=== PATIENT | male | born 1935 | race Caucasian/White ===

== ENCOUNTER → 2018-06-24 09:02 | Outpatient (CLI) | payer MEDICARE, OTHER ==
[2012-04-25 10:38] VITALS: BMI 28.1
== END | disposition home or self-care (01) ==
LOC: D.HCCARDIO 09:02
PROVIDERS: ATTEND Internal Medicine Cardiovascular Disease
DX: I34.0 Nonrheumatic mitral (valve) insufficiency (principal)

== ENCOUNTER 2018-08-20 19:23 | Emergency (ER) | payer MEDICARE, OTHER ==
[~2018-08-20] VITALS: Ht 177.8 cm; Wt 83.2 kg
[2018-08-20 19:34] VITALS: Ht 177.8 cm; Wt 83.2 kg
[2018-08-20] MEDS ORDERED: LIPITOR20 MG PO (19:36)
[2018-08-20] MEDS ORDERED: KRILL OIL 1,001 EAC1 PO (19:37)
[2018-08-20] MEDS ORDERED: MAGNESIUM OXID250 MG PO (19:37)
[2018-08-20] MEDS ORDERED: NIACIN100 MG PO (19:37)
[2018-08-20 20:16] LABS: BASOPHILS 0.1 % (0-2); EOSINOPHILS 1.4 % (0-7); HEMATOCRIT 40.7 % (42.0-54.0); IMMATURE GRANULOCYTES 0.1 % (0-5); LYMPHOCYTES 23.1 % (15-50); MCH 31.4 pg (26.0-34.0); MCHC 34.4 g/dL (31.0-37.0); MCV 91.3 fL (80.0-100.0); MEAN PLATELET VOLUME 9.5 fL (7.4-10.4); MONOCYTES 12.2 % (2-11); NEUTROPHILS 63.1 % (40-80); PLATELET COUNT 165 10x3/uL (130-400); RBC 4.46 10x6/uL (4.20-6.10); RDW 13.2 % (11.5-14.5)
[2018-08-20 20:33] LABS: ALBUMIN 3.9 g/dL (3.4-5.0); ALKALINE PHOSPHATASE 68 U/L (46-116); ALT (SGPT) 32 U/L (10-68); CALC OSMOLALITY 289 mosm/kg (275-300); CARBON DIOXIDE 25.6 mmol/L (21.0-32.0); CHLORIDE - SERUM 106 mmol/L (98-107); CREATININE - SERUM 1.2 mg/dL (0.6-1.3); GLUCOSE 113 mg/dL (74-106); PROTEIN - SERUM 7.4 g/dL (6.4-8.2); SODIUM 142 mmol/L (136-145); UREA NITROGEN 28 mg/dL (7-18); eGFR NON AFRICAN AMERICAN 61 mL/min (90-120)
[2018-08-20 20:38] LABS: AMYLASE - SERUM 44 U/L (25-115); LIPASE 67 U/L (73-393)
[2018-08-20 20:51] LABS: TROPONIN-I < 0.017 ng/mL (0.000-0.060)
[2018-08-20 22:35] LABS: APPEARANCE CLEAR (CLEAR); BILIRUBIN NEGATIVE (NEGATIVE); COLOR YELLOW (YELLOW); GLUCOSE NEGATIVE (NEGATIVE); KETONE NEGATIVE (NEGATIVE); NITRITE NEGATIVE (NEGATIVE); PROTEIN NEGATIVE (NEGATIVE); SPECIFIC GRAVITY 1.015 (1.005-1.020); UROBILINOGEN NORMAL (NORMAL)
[2018-08-20] MEDS ORDERED: MILK OF MAGNESI30 ML PO (22:51)
[2018-08-20] MEDS ORDERED: MIRALAX17 GM PO (22:51)
[2018-08-20 23:07] VITALS: BP 135/66
== END 2018-08-20 23:09 | disposition home or self-care (01) ==
LOC: D.ER 19:23
PROVIDERS: Family Medicine
DX: K59.00 Constipation, unspecified (principal); F03.90 Unspecified dementia, unspecified severity, without behavioral disturbance, psychotic disturbance, mood disturbance, and anxiety

== ENCOUNTER 2018-12-14 14:05 | Inpatient (IN) | payer MEDICARE, OTHER ==
[~2018-12-14] VITALS: Ht 177.8 cm; Wt 80.9 kg
[~2018-12-14 14:05] MED LIST: KRILL OIL 1,001 EAC1 PO; LIPITOR20 MG PO; MAGNESIUM OXID250 MG PO; MILK OF MAGNESI30 ML PO; MIRALAX17 GM PO; NIACIN100 MG PO
[2018-12-14 14:32] LABS: BASOPHILS 0.3 % (0-2); EOSINOPHILS 1.2 % (0-7); HEMATOCRIT 41.2 % (42.0-54.0); HEMOGLOBIN 14.6 g/dL (13.5-17.5); IMMATURE GRANULOCYTES 0.1 % (0-5); LYMPHOCYTES 28.4 % (15-50); MCH 31.3 pg (26.0-34.0); MCHC 35.4 g/dL (31.0-37.0); MCV 88.4 fL (80.0-100.0); MEAN PLATELET VOLUME 9.2 fL (7.4-10.4); MONOCYTES 8.4 % (2-11); NEUTROPHILS 61.6 % (40-80); PLATELET COUNT 161 10x3/uL (130-400); RBC 4.66 10x6/uL (4.20-6.10); WBC 6.9 10x3/uL (4.8-10.8)
[2018-12-14 14:42] LABS: APTT 26.8 SECONDS (22.8-39.4); INR 1.05 (0.85-1.17); PROTIME 13.2 SECONDS (11.6-15.0)
[2018-12-14 14:46] LABS: ALKALINE PHOSPHATASE 77 U/L (46-116); ALT (SGPT) 28 U/L (10-68); BILIRUBIN - TOTAL 0.44 mg/dL (0.2-1.3); CALC OSMOLALITY 282 mosm/kg (275-300); CALCIUM 9.1 mg/dL (8.5-10.1); CHLORIDE - SERUM 105 mmol/L (98-107); GLUCOSE 119 mg/dL (74-106); POTASSIUM - SERUM 4.1 mmol/L (3.5-5.1); PROTEIN - SERUM 7.3 g/dL (6.4-8.2); SODIUM 140 mmol/L (136-145); UREA NITROGEN 20 mg/dL (7-18); eGFR NON AFRICAN AMERICAN 75 mL/min (90-120)
[2018-12-14 14:57] LABS: CKMB 1.4 U/L (0.0-3.6); CREATINE KINASE 99 UL (21-232); THYROID STIMULATING HORMONE 2.63 uIU/mL (0.36-3.74)
[2018-12-14 14:58] LABS: TROPONIN-I < 0.017 ng/mL (0.000-0.060)
[2018-12-14 16:42] LABS: APPEARANCE CLEAR (CLEAR); BILIRUBIN NEGATIVE (NEGATIVE); COLOR STRAW (YELLOW); GLUCOSE NEGATIVE (NEGATIVE); KETONE SMALL mg/dL (NEGATIVE); NITRITE NEGATIVE (NEGATIVE); PROTEIN NEGATIVE (NEGATIVE); SPECIFIC GRAVITY 1.005 (1.005-1.020); UROBILINOGEN NORMAL (NORMAL)
[2018-12-14 21:11] LABS: CKMB 1.1 U/L (0.0-3.6); CREATINE KINASE 98 UL (21-232); TROPONIN-I < 0.017 ng/mL (0.000-0.060)
[2018-12-15] VITALS (7 sets, daily range): BP systolic 120–156; BP diastolic 16–82; BMI 25.4; BMI 25.3
[2018-12-15 03:05] LABS: BASOPHILS 0.2 % (0-2); EOSINOPHILS 1.3 % (0-7); HEMATOCRIT 37.4 % (42.0-54.0); HEMOGLOBIN 13.2 g/dL (13.5-17.5); IMMATURE GRANULOCYTES 0.2 % (0-5); LYMPHOCYTES 29.7 % (15-50); MCH 31.2 pg (26.0-34.0); MCHC 35.3 g/dL (31.0-37.0); MCV 88.4 fL (80.0-100.0); MEAN PLATELET VOLUME 9.1 fL (7.4-10.4); MONOCYTES 10.8 % (2-11); NEUTROPHILS 57.8 % (40-80); PLATELET COUNT 141 10x3/uL (130-400); RBC 4.23 10x6/uL (4.20-6.10); RDW 12.9 % (11.5-14.5); WBC 5.4 10x3/uL (4.8-10.8)
[2018-12-15 03:38] LABS: ALBUMIN 3.3 g/dL (3.4-5.0); ALKALINE PHOSPHATASE 65 U/L (46-116); ALT (SGPT) 24 U/L (10-68); BILIRUBIN - TOTAL 0.47 mg/dL (0.2-1.3); CALC OSMOLALITY 287 mosm/kg (275-300); CALCIUM 8.3 mg/dL (8.5-10.1); CARBON DIOXIDE 28.2 mmol/L (21.0-32.0); CHLORIDE - SERUM 109 mmol/L (98-107); CKMB 1.5 U/L (0.0-3.6); CREATINE KINASE 90 UL (21-232); CREATININE - SERUM 1.1 mg/dL (0.6-1.3); GLUCOSE 101 mg/dL (74-106); MAGNESIUM - SERUM 1.9 mg/dL (1.8-2.4); PHOSPHOROUS 3.6 mg/dL (2.5-4.9); POTASSIUM - SERUM 3.8 mmol/L (3.5-5.1); PRO BNP 542 pg/mL (0-450); PROTEIN - SERUM 6.4 g/dL (6.4-8.2); SODIUM 144 mmol/L (136-145); TROPONIN-I < 0.017 ng/mL (0.000-0.060); UREA NITROGEN 16 mg/dL (7-18); eGFR NON AFRICAN AMERICAN 67 mL/min (90-120)
[2018-12-15 08:42] LABS: CKMB 1.2 U/L (0.0-3.6); CREATINE KINASE 104 UL (21-232); TROPONIN-I < 0.017 ng/mL (0.000-0.060)
--- NOTE | 2018-12-15 09:53 | NUR ---
Rehab Note- Acute Inpatient Rehab prescreen order received. The patient is a new admit & continues to have an acute work up & has a pending PT Eval- will await to see the patient's functional mobility. Will continue to follow at this time. THank you for this referral! Susana Mcdaniel RN Clinical Liaison, [facility] Rehab
--- NOTE | 2018-12-15 14:58 | NUR ---
REHAB PRESCREENING Mr. Walker was able to ambulate 8 feet with PT evaluation. He will be a good candidate for ARU if agreeable. Rehab will accept him when his work up is complete and his physicians feel he is appropriate for discharge. Thank you for this referral! Laurie Kelley, RETAIL FIELD REPRESENTATIVE Rehab PD
--- NOTE | 2018-12-15 17:02 | MORECARE ---
CASE MANAGEMENT DISCHARGE SUMMARY PATIENT: FORTUNATO CARSON UNIT: [id number] ADM DATE: 12/15/18 AGE: 83 : 33 SEX: M ROOM/BED: D.5178 AUTHOR: KATHRYNDOC PHYSICIAN: REFERRING PHYSICIAN: DANE HILL MD DATE OF SERVICE: 12/15/18 Discharge Plan Patient Name: FORTUNATO CARSON [facility] [facility] 1935 Planned Disposition: Inpatient Rehab Anticipated Discharge Date: 12/16/18 Discharge Date: Expected LOS: 1 Initial Reviewer: [id number] Initial Review Date: 12/15/2018 Generated: 12/15/18 6:02 pm Comments DCP- Discharge Planning Updated by [email or web address]: Danny Darby on 12/15/18 4:[address] Patient Name: FORTUNATO CARSON Admission Status: ER Accout number: [id number] Admission Date: 12-15-2018 : 1935 Admission Diagnosis: Attending: ANTONELLA HILL Current LOS: 1 Anticipated DC Date: 12-16-2018 Planned Disposition: Inpatient Rehab Primary Insurance: MEDICARE A & B PLANNED EXTERNAL PROVIDER: INPATIENT REHAB Discharge Planning Comments: CM RECEIVED ORDER FOR ADAPTIVE EQUIPMENT AND INPATIENT REHAB PRESCREEN. CM MET WITH PT IN ROOM TO DISCUSS DISCHARGE PLANNING AND NEEDS. FORTUNATO CARSON provided verbal consent to discuss current and ongoing needs with/in the presence of: SPOUSE, SWATHI. PT REPORTS LIVING AT HOME INDEPENDENTLY WITH HIS . PT HAS NO MEDICAL EQUIPMENT AND NO OUTSIDE SERVICES ASSISTING IN THE HOME. CM DISCUSSED AVAILABILITY OF HOME HEALTH, REHAB SERVICES AND MEDICAL EQUIPMENT. PT DENIES NEED OF MEDICAL EQUIPMENT REPORTING HIS HAS A ROLLATOR WALKER HE CAN USE IF NEEDED SHE DOES NOT REQUIRE IT NOW. PT AND SPOUSE WOULD LIKE TO CONSIDER REHAB AT [place] IF PT DOES NOT NEED TRANSFERRED TO [facility] FOR NEUOLOGY. PT STATES HE IS WAITING FOR THE DOCTOR TO TELL HIM IF HE NEEDS A NEUROLOGIST. PT REPORTS HIS FAMILY WILL PICK HIM UP FOR DISCHARGE HOME CM WAITING THERAPY EVALUATIONS AND INPATIENT REHAB PRESCREENING DETERMINATION FROM INPATIENT REHAB. Intensive Care Unit Nurse: Danny Darby DCPIA - Discharge Planning Initial Assessment Updated by [id number]: Danny Darby on 12/15/18 4:58 pm * Is the patient Alert and Oriented? Yes * How many steps to enter\exit or inside your home? * PCP DR. WAY * Pharmacy [facility] OR [place] [facility]IL ORDER * Preadmission Environment Home with Family * ADLs Independent * Equipment None * Other Equipment PT REPORTS HAVING HIS 'S ROLLATOR WALKER TO USE IF NECESSARY SHE DOES NOT USE IT. NO MEDICAL EQUIPMENT PROVIDER PREFERENCE * List name and contact numbers for known caregivers / representatives who currently or will assist patient after discharge: SWATHI CARSON, SPOUSE, * Verbal permission to speak to the caregivers and representatives has been obtained from the patient. Yes * Community resources currently utilized None * Please name any agencies selected above. NONE * Additional services required to return to the preadmission environment? Yes * Can the patient safely return to the preadmission environment? Yes * Has this patient been hospitalized within the prior 30 days at any hospital? No Coverage Notice Reviewer: [id number] Yanira Eller [place] Notice Issued Date-Time: 12/15/2018 9:40 Notice Type: Medicare Outpatient Observation Notice Notice Delivered To: Patient Relationship to Patient: Self Director Of Placement Name: Delivery Method: HAND - Hand Delivered Isabelle Days: Prior Verbal Notification: Recipient Understood Notice: Yes Recipient Signature: Yes Med Rec Note Co-signed by Attending: Coverage Notice Comment: Patient Name: FORTUNATO CARSON Page [id number] at 1702 All edits/amendments must be made on the electronic document DICTATION DATE: 12/15/181701 JAVA PROGRAMMER ANALYST: FRANCESCA 12/15/181701 RPT#: [id number] DC DATE: STATUS: ADM [address] [place] [address] END OF REPORT
--- NOTE | 2018-12-15 19:31 | NUR ---
RESUMING PATIENT CARE. PATIENT IS ALERT AND ORIENTED, RESTING COMFORTAWBLY IN BED. RESPIRATIONS ARE EVEN AND UNLABORED. NO S/S OF DISTRESS. NO C/O PAIN. CALL LIGHT WITHIN REACH. WILL CPOC.
[2018-12-16 00:30] VITALS: BP 145/70
[2018-12-16 04:30] VITALS: BP 152/76
[2018-12-16 06:32] LABS: CALC OSMOLALITY 282 mosm/kg (275-300); CALCIUM 8.7 mg/dL (8.5-10.1); CARBON DIOXIDE 26.8 mmol/L (21.0-32.0); CHLORIDE - SERUM 106 mmol/L (98-107); GLUCOSE 105 mg/dL (74-106); MAGNESIUM - SERUM 1.8 mg/dL (1.8-2.4); PHOSPHOROUS 3.6 mg/dL (2.5-4.9); POTASSIUM - SERUM 3.8 mmol/L (3.5-5.1); SODIUM 141 mmol/L (136-145); UREA NITROGEN 18 mg/dL (7-18); eGFR NON AFRICAN AMERICAN 75 mL/min (90-120)
[2018-12-16 07:29] LABS: BASOPHILS 0.4 % (0-2); EOSINOPHILS 1.8 % (0-7); HEMATOCRIT 37.2 % (42.0-54.0); HEMOGLOBIN 12.9 g/dL (13.5-17.5); LYMPHOCYTES 29.1 % (15-50); MCH 30.9 pg (26.0-34.0); MCHC 34.7 g/dL (31.0-37.0); MCV 89.2 fL (80.0-100.0); MEAN PLATELET VOLUME 9.7 fL (7.4-10.4); MONOCYTES 14.2 % (2-11); NEUTROPHILS 54.5 % (40-80); PLATELET COUNT 154 10x3/uL (130-400); RBC 4.17 10x6/uL (4.20-6.10); RDW 13.1 % (11.5-14.5); WBC 5.5 10x3/uL (4.8-10.8)
[2018-12-16 08:35] VITALS: BP 123/59
[2018-12-16 12:45] VITALS: BP 114/69
--- NOTE | 2018-12-16 13:39 | NUR ---
Rehab Note- the patient has a pending Cardiovascular Surgeon consult due to carotid stenosis, will need to be done prior to admission to acute inpatient rehab. Will continue to follow at this time. Thank you for this referral! Susana Mcdaniel RN Clinical Liaison, [facility] Rehab
[2018-12-16 14:07] VITALS: Ht 177.8 cm; Wt 80.9 kg
--- NOTE | 2018-12-16 14:40 | NUR ---
OT NOTE: PT COMPLETED BED MOB TASKS WITH MIN/MOD A. PT COMPLETED GROOMING TASKS WITH SET UP. THANK YOU, JENNIFER WEN
--- NOTE | 2018-12-16 14:44 | NUR ---
IV STARTED TO LFA WITH 20 GAUGE CATH X 1 STICK AND FLUSHED WITH NS. LINE IS PATENT.
--- NOTE | 2018-12-16 15:15 | NUR ---
LEAVING FOR X-RAY BY W/C FOR CTA CAROTID. WILL CONT. PLAN OF CARE.
[2018-12-16 16:45] VITALS: BP 94/52
--- NOTE | 2018-12-16 19:40 | NUR ---
PATIENT IS RESTING IN BED. BREATHING UNLABORED AND EVEN. DENIES ANY PAIN OR CONCERNS AT THIS TIME. BED IN THE LOWEST POSITON AND CALL LIGHT IN REACH. WILL CONTINUE TO FOLLOW POC AND CTM.
[2018-12-17 01:14] VITALS: BP 121/65
[2018-12-17 05:07] VITALS: BP 105/54
[2018-12-17 05:57] LABS: BASOPHILS 0.1 % (0-2); EOSINOPHILS 1.3 % (0-7); HEMATOCRIT 35.4 % (42.0-54.0); HEMOGLOBIN 12.4 g/dL (13.5-17.5); IMMATURE GRANULOCYTES 0.1 % (0-5); MCH 31.3 pg (26.0-34.0); MCV 89.4 fL (80.0-100.0); MEAN PLATELET VOLUME 9.6 fL (7.4-10.4); MONOCYTES 10.9 % (2-11); NEUTROPHILS 68.6 % (40-80); PLATELET COUNT 145 10x3/uL (130-400); RBC 3.96 10x6/uL (4.20-6.10); RDW 13.1 % (11.5-14.5)
[2018-12-17 06:04] LABS: WBC 7.1 10x3/uL (4.8-10.8)
[2018-12-17 06:14] LABS: ANION GAP 9.9 mmol/L (8-16); CALCIUM 8.7 mg/dL (8.5-10.1); CARBON DIOXIDE 29.6 mmol/L (21.0-32.0); CREATININE - SERUM 1.1 mg/dL (0.6-1.3); MAGNESIUM - SERUM 1.8 mg/dL (1.8-2.4); PHOSPHOROUS 3.6 mg/dL (2.5-4.9)
[2018-12-17 06:15] LABS: POTASSIUM - SERUM 4.5 mmol/L (3.5-5.1)
[2018-12-17 08:47] VITALS: BP 104/53
--- NOTE | 2018-12-17 09:51 | NUR ---
TELEMETRY SR. UP AMBULATING HALLWAY W/O C/O DIZZINESS. GAIT STEADY.
--- NOTE | 2018-12-17 10:46 | NUR ---
UP AMBULATING HALLWAY WITH PT. WILL CONT. TO MONITOR.
[2018-12-17 12:30] VITALS: BP 108/54
--- NOTE | 2018-12-17 12:38 | NUR ---
Nutrition Follow-up: Good appetite/PO intake. Likes Ensure. Diet: Cardiac PO intake: 75-100% Wt: 178# Last BM: 12/17 Labs reviewed Meds reviewed Continue cardiac diet as tolerated. +Ensure with meals. RD following.
[2018-12-17] MEDS ORDERED: NITRO-DUR0.6 MG TRANSDERM (12:40)
[2018-12-17] MEDS ORDERED: ASPIRIN EC81 M1 PO (12:40)
--- NOTE | 2018-12-17 15:43 | NUR ---
NOTIFIED SHARON MANN IN REHAB THAT PATIENT IS NO LONGER GOING TO REHAB AND IS GOING HOME WITH HOME HEALTH. STATED SHE WOULD ADVISE [facility]/A[facility] I COULD NOT REACH HER BY PHONE
--- NOTE | 2018-12-17 16:04 | MORECARE ---
CASE MANAGEMENT DISCHARGE SUMMARY PATIENT: FORTUNATO CARSON UNIT: [id number] ADM DATE: 12/15/18 AGE: 83 : 33 SEX: M ROOM/BED: D.1188 AUTHOR: KATHRYNDOC PHYSICIAN: REFERRING PHYSICIAN: DANE HILL MD DATE OF SERVICE: 12/17/18 Discharge Plan Patient Name: FORTUNATO CARSON [facility] [facility] 1935 Planned Disposition: Inpatient Rehab Anticipated Discharge Date: 12/16/18 Discharge Date: Expected LOS: 1 Initial Reviewer: [id number] Initial Review Date: 12/15/2018 Generated: 12/17/18 5:04 pm DCP- Discharge Planning Updated by [email or web address]: Danny Darby on 12/15/18 4:[address] Patient Name: FORTUNATO CARSON Admission Status: ER Accout number: [id number] Admission Date: 12-15-2018 : 1935 Admission Diagnosis: Attending: ANTONELLA HILL Current LOS: 1 Anticipated DC Date: 12-16-2018 Planned Disposition: Inpatient Rehab Primary Insurance: MEDICARE A & B PLANNED EXTERNAL PROVIDER: [facility] INPATIENT REHAB Discharge Planning Comments: CM RECEIVED ORDER FOR ADAPTIVE EQUIPMENT AND INPATIENT REHAB PRESCREEN. CM MET WITH PT IN ROOM TO DISCUSS DISCHARGE PLANNING AND NEEDS. FORTUNATO CARSON provided verbal consent to discuss current and ongoing needs with/in the presence of: SPOUSE, SWATHI. PT REPORTS LIVING AT HOME INDEPENDENTLY WITH HIS . PT HAS NO MEDICAL EQUIPMENT AND NO OUTSIDE SERVICES ASSISTING IN THE HOME. CM DISCUSSED AVAILABILITY OF HOME HEALTH, REHAB SERVICES AND MEDICAL EQUIPMENT. PT DENIES NEED OF MEDICAL EQUIPMENT REPORTING HIS HAS A ROLLATOR WALKER HE CAN USE IF NEEDED SHE DOES NOT REQUIRE IT NOW. PT AND SPOUSE WOULD LIKE TO CONSIDER REHAB AT [place] IF PT DOES NOT NEED TRANSFERRED TO [facility] FOR NEUOLOGY. PT STATES HE IS WAITING FOR THE DOCTOR TO TELL HIM IF HE NEEDS A NEUROLOGIST. PT REPORTS HIS FAMILY WILL PICK HIM UP FOR DISCHARGE HOME CM WAITING THERAPY EVALUATIONS AND INPATIENT REHAB PRESCREENING DETERMINATION FROM [facility] INPATIENT REHAB. Board Setter: Danny Darby DCPIA - Discharge Planning Initial Assessment Updated by [id number]: Danny Darby on 12/15/18 4:58 pm * Is the patient Alert and Oriented? Yes * How many steps to enter\exit or inside your home? * PCP DR. WAY * Pharmacy [facility] [place] [facility] * Preadmission Environment Home with Family * ADLs Independent * Equipment None * Other Equipment PT REPORTS HAVING HIS 'S ROLLATOR WALKER TO USE IF NECESSARY SHE DOES NOT USE IT. NO MEDICAL EQUIPMENT PROVIDER PREFERENCE * List name and contact numbers for known caregivers / representatives who currently or will assist patient after discharge: SWATHI CARSON, SPOUSE, * Verbal permission to speak to the caregivers and representatives has been obtained from the patient. Yes * Community resources currently utilized None * Please name any agencies selected above. NONE * Additional services required to return to the preadmission environment? Yes * Can the patient safely return to the preadmission environment? Yes * Has this patient been hospitalized within the prior 30 days at any hospital? No External Providers [facility] Provider[facility] Next Contact Date: 12/17/2018 Service Request Date: Service Type: Resolution: Reviewer: Comments: Coverage Notice Reviewer: [id number] Yanira Eller [place] Notice Issued Date-Time: 12/15/2018 9:40 Notice Type: Medicare Outpatient Observation Notice Notice Delivered To: Patient Relationship to Patient: Self Bookmobile Librarian Name: Delivery Method: HAND - Hand Delivered Isabelle Days: Prior Verbal Notification: Recipient Understood Notice: Yes Recipient Signature: Yes Med Rec Note Co-signed by Attending: Coverage Notice Comment: Last DP export: 12/15/18 4:02 p Patient Name: FORTUNATO CARSON Page [id number] at 1604 All edits/amendments must be made on the electronic document DICTATION DATE: 12/17/18 160 CREDIT REFERENCE CLERK: FRANCESCA 12/17/18 1604 RPT#: [id number] DC DATE: STATUS: ADM IN [facility] [address] [place] [address] END OF REPORT
--- NOTE | 2018-12-17 16:12 | MORECARE ---
CASE MANAGEMENT DISCHARGE SUMMARY PATIENT: FORTUNATO CARSON UNIT: [id number] ADM DATE: 12/15/18 AGE: 83 : 33 SEX: M ROOM/BED: D.8167 AUTHOR: KATHRYN,DOC PHYSICIAN: REFERRING PHYSICIAN: DANE HILL MD DATE OF SERVICE: 12/17/18 Discharge Plan Patient Name: FORTUNATO CARSON [facility] [facility] 1935 Planned Disposition: Home with Home Health Anticipated Discharge Date: 12/17/18 Discharge Date: Expected LOS: 2 Initial Reviewer: [id number] Initial Review Date: 12/15/2018 Generated: 12/17/18 5:12 pm DCP- Discharge Planning Updated by [email or web address]: Danny Darby on 12/15/18 4:[address] Patient Name: FORTUNATO CARSON Admission Status: ER Accout number: [id number] Admission Date: 12-15-2018 : 1935 Admission Diagnosis: Attending: ANTONELLA HILL Current LOS: 1 Anticipated DC Date: 12-16-2018 Planned Disposition: Inpatient Rehab Primary Insurance: MEDICARE A & B PLANNED EXTERNAL PROVIDER: [facility] INPATIENT REHAB Discharge Planning Comments: CM RECEIVED ORDER FOR ADAPTIVE EQUIPMENT AND INPATIENT REHAB PRESCREEN. CM MET WITH PT IN ROOM TO DISCUSS DISCHARGE PLANNING AND NEEDS. FORTUNATO CARSON provided verbal consent to discuss current and ongoing needs with/in the presence of: SPOUSE, SWATHI. PT REPORTS LIVING AT HOME INDEPENDENTLY WITH HIS . PT HAS NO MEDICAL EQUIPMENT AND NO OUTSIDE SERVICES ASSISTING IN THE HOME. CM DISCUSSED AVAILABILITY OF HOME HEALTH, REHAB SERVICES AND MEDICAL EQUIPMENT. PT DENIES NEED OF MEDICAL EQUIPMENT REPORTING HIS HAS A ROLLATOR WALKER HE CAN USE IF NEEDED SHE DOES NOT REQUIRE IT NOW. PT AND SPOUSE WOULD LIKE TO CONSIDER REHAB AT [place] IF PT DOES NOT NEED TRANSFERRED TO [facility] FOR NEUOLOGY. PT STATES HE IS WAITING FOR THE DOCTOR TO TELL HIM IF HE NEEDS A NEUROLOGIST. PT REPORTS HIS FAMILY WILL PICK HIM UP FOR DISCHARGE HOME CM WAITING THERAPY EVALUATIONS AND INPATIENT REHAB PRESCREENING DETERMINATION FROM [facility] INPATIENT REHAB. Net Programmer Analyst: Danny Darby DCPIA - Discharge Planning Initial Assessment Updated by [email or web address]: Danny Darby on 12/15/18 4:58 pm * Is the patient Alert and Oriented? Yes * How many steps to enter\exit or inside your home? * PCP DR. WAY * Pharmacy [facility] OR [place] [facility] ORDER * Preadmission Environment Home with Family * ADLs Independent * Equipment None * Other Equipment PT REPORTS HAVING HIS 'S ROLLATOR WALKER TO USE IF NECESSARY SHE DOES NOT USE IT. NO MEDICAL EQUIPMENT PROVIDER PREFERENCE * List name and contact numbers for known caregivers / representatives who currently or will assist patient after discharge: SWATHI CARSON, SPOUSE, * Verbal permission to speak to the caregivers and representatives has been obtained from the patient. Yes * Community resources currently utilized None * Please name any agencies selected above. NONE * Additional services required to return to the preadmission environment? Yes * Can the patient safely return to the preadmission environment? Yes * Has this patient been hospitalized within the prior 30 days at any hospital? No Coverage Notice Reviewer: [id number] Yanira Ambrose Notice Issued Date-Time: 12/15/2018 9:40 Notice Type: Medicare Outpatient Observation Notice Notice Delivered To: Patient Relationship to Patient: Self Multimedia Author Name: Delivery Method: HAND - Hand Delivered Isabelle Days: Prior Verbal Notification: Recipient Understood Notice: Yes Recipient Signature: Yes Med Rec Note Co-signed by Attending: Coverage Notice Comment: Last DP export: 12/17/18 3:04 p Patient Name: FORTUNATO CARSON Page [id number] at 1612 All edits/amendments must be made on the electronic document DICTATION DATE: 12/17/181611 STILE RIPSAW OPERATOR: FRANCESCA 12/17/18 161 RPT#: [id number] DC DATE: STATUS: ADM IN [facility] [address] [place] [address] END OF REPORT
--- NOTE | 2018-12-17 16:22 | MORECARE ---
CASE MANAGEMENT DISCHARGE SUMMARY PATIENT: FORTUNATO CARSON UNIT: [id number] ADM DATE: 12/15/18 AGE: 83 : 33 SEX: M ROOM/BED: D.7256 AUTHOR: KATHRYN,DOC PHYSICIAN: REFERRING PHYSICIAN: DANE HILL MD DATE OF SERVICE: 12/17/18 Discharge Plan Patient Name: FORTUNATO CARSON [facility] [facility] 1935 Planned Disposition: Home with Home Health Anticipated Discharge Date: 12/17/18 Discharge Date: Expected LOS: 2 Initial Reviewer: [email or web address] Initial Review Date: 12/15/2018 Generated: 12/17/18 5:21 pm DCP- Discharge Planning Updated by [email or web address]: Danny Darby on 12/15/18 4:[address] Patient Name: FORTUNATO CARSON Admission Status: ER Accout number: [id number] Admission Date: 12-15-2018 : 1935 Admission Diagnosis: Attending: ANTONELLA HILL Current LOS: 1 Anticipated DC Date: 12-16-2018 Planned Disposition: Inpatient Rehab Primary Insurance: MEDICARE A & B PLANNED EXTERNAL PROVIDER: [facility] INPATIENT REHAB Discharge Planning Comments: CM RECEIVED ORDER FOR ADAPTIVE EQUIPMENT AND INPATIENT REHAB PRESCREEN. CM MET WITH PT IN ROOM TO DISCUSS DISCHARGE PLANNING AND NEEDS. FORTUNATO CARSON provided verbal consent to discuss current and ongoing needs with/in the presence of: SPOUSE, SWATHI. PT REPORTS LIVING AT HOME INDEPENDENTLY WITH HIS . PT HAS NO MEDICAL EQUIPMENT AND NO OUTSIDE SERVICES ASSISTING IN THE HOME. CM DISCUSSED AVAILABILITY OF HOME HEALTH, REHAB SERVICES AND MEDICAL EQUIPMENT. PT DENIES NEED OF MEDICAL EQUIPMENT REPORTING HIS HAS A ROLLATOR WALKER HE CAN USE IF NEEDED SHE DOES NOT REQUIRE IT NOW. PT AND SPOUSE WOULD LIKE TO CONSIDER REHAB AT [place] IF PT DOES NOT NEED TRANSFERRED TO [facility] FOR NEUOLOGY. PT STATES HE IS WAITING FOR THE DOCTOR TO TELL HIM IF HE NEEDS A NEUROLOGIST. PT REPORTS HIS FAMILY WILL PICK HIM UP FOR DISCHARGE HOME CM WAITING THERAPY EVALUATIONS AND INPATIENT REHAB PRESCREENING DETERMINATION FROM [facility] INPATIENT REHAB. Civil Cad Tech: Danny Darby DCPIA - Discharge Planning Initial Assessment Updated by [email or web address]: Danny Darby on 12/15/18 4:58 pm * Is the patient Alert and Oriented? Yes * How many steps to enter\exit or inside your home? * PCP DR. WAY * Pharmacy [facility] OR [place] MAIL ORDER * Preadmission Environment Home with Family * ADLs Independent * Equipment None * Other Equipment PT REPORTS HAVING HIS 'S ROLLATOR WALKER TO USE IF NECESSARY SHE DOES NOT USE IT. NO MEDICAL EQUIPMENT PROVIDER PREFERENCE * List name and contact numbers for known caregivers / representatives who currently or will assist patient after discharge: SWATHI CARSON, SPOUSE, * Verbal permission to speak to the caregivers and representatives has been obtained from the patient. Yes * Community resources currently utilized None * Please name any agencies selected above. NONE * Additional services required to return to the preadmission environment? Yes * Can the patient safely return to the preadmission environment? Yes * Has this patient been hospitalized within the prior 30 days at any hospital? No Coverage Notice Reviewer: [id number] Yanira Ambrose Notice Issued Date-Time: 12/15/2018 9:40 Notice Type: Medicare Outpatient Observation Notice Notice Delivered To: Patient Relationship to Patient: Self Company Pilot Name: Delivery Method: HAND - Hand Delivered Isabelle Days: Prior Verbal Notification: Recipient Understood Notice: Yes Recipient Signature: Yes Med Rec Note Co-signed by Attending: Coverage Notice Comment: Last DP export: 12/17/18 3:12 p Patient Name: FORTUNATO CARSON Page [id number] at 1622 All edits/amendments must be made on the electronic document DICTATION DATE: 12/17/181620 CASING SEWER: FRANCESCA 12/17/18 162 RPT#: [id number] DC DATE: STATUS: ADM IN [facility] [address] [place] [address] END OF REPORT
--- NOTE | 2018-12-17 16:29 | NUR ---
IV AND TELEMETRY DCD. DC PLANS GIVEN. UNDERSTANDING VOICED. ESCORTED TO CAR BY W/C.
--- NOTE | 2018-12-17 16:29 | MORECARE ---
CASE MANAGEMENT DISCHARGE SUMMARY PATIENT: FORTUNATO CARSON UNIT: [id number] ADM DATE: 12/15/18 AGE: 83 : [birth year] SEX: M ROOM/BED: D.7612 AUTHOR: KATHRYN,STELLA PHYSICIAN: REFERRING PHYSICIAN: DANE HILL MD DATE OF SERVICE: 12/17/18 Discharge Plan Patient Name: FORTUNATO CARSON Facility: [facility]:[place] : 1935 Planned Disposition: Home with Home Health Anticipated Discharge Date: 12/17/18 Discharge Date: Expected LOS: 2 Initial Reviewer: [email or web address] Initial Review Date: 12/15/2018 Generated: 12/17/18 5:29 pm Comments DCP- Discharge Planning Updated by [email or web address]: Danny Darby on 12/17/18 3:[address] Patient Name: FORTUNATO CARSON Admission Status: ER Accout number: [id number] Admission Date: 12-15-2018 : 1935 Admission Diagnosis:ALTERED MENTAL STATUS, UNSPECIFIED Attending: ANTONELLA HILL Current LOS: 2 Anticipated DC Date: 12-17-2018 Planned Disposition: Home with Home Health Primary Insurance: MEDICARE A & B PLANNED EXTERNAL PROVIDER: [facility] Discharge Planning Comments: CM SPOKE TO BEDSIDE NURSE, PT DOES NOT WANT TO GO TO INPATIENT REHAB AND HAS BEEN DISCHARGE TO REHAB TODAY. CM MET WITH PT AND SPOUSE IN ROOM TO DISCUSS DISCHARGE NEEDS AND PLANNING. PT STATES HE WANTS TO GO HOME AND IS FEELING STRONG ENOUGH TO GO HOME. PT'S SPOUSE IN AGREEMENT WITH PLAN. CM DISCUSSED AVAILABILITY OF HOME HEALTH, REHAB SERVICES AND MEDICAL EQUIPMENT. PT AND SPOUSE REQUEST HOME HEALTH WITH [facility]..CHOICE SIGNED. SPOUSE TO TRANSPORT HOME AT DISCHARGE. CM NOTIFIED HOSSE[facility] WHO PROVIDED ORDER FOR HOME HEALTH. CM CALLED [facility], , SPOKE TO LISSA WHO TOOK REFERRAL FOR HOME HEALTH ADMISSION TOMORROW. CM FAXED REFERRAL AND DISCHARGE INFORMATION TO [facility] AT [phone]. BEDSIDE NURSE AND DRIVEMATIC MACHINE OPERATOR NURSE NOTIFIED. DRIVEMATIC MACHINE OPERATOR NURSE NOTIFIED [facility] OF INPATIENT REHAB. Drop Hammer Operator Helper: Danny Darby DCP- Discharge Planning Updated by [id number]: Danny Darby on 12/15/18 4:[address] Patient Name: FORTUNATO CARSON Admission Status: ER Accout number: [id number] Admission Date: 12-15-2018 : 1935 Admission Diagnosis: Attending: ANTONELLA HILL Current LOS: 1 Anticipated DC Date: 12-16-2018 Planned Disposition: Inpatient Rehab Primary Insurance: MEDICARE A & B PLANNED EXTERNAL PROVIDER: [facility] INPATIENT REHAB Discharge Planning Comments: CM RECEIVED ORDER FOR ADAPTIVE EQUIPMENT AND INPATIENT REHAB PRESCREEN. CM MET WITH PT IN ROOM TO DISCUSS DISCHARGE PLANNING AND NEEDS. FORTUNATO CARSON provided verbal consent to discuss current and ongoing needs with/in the presence of: SPOUSE, SWATHI. PT REPORTS LIVING AT HOME INDEPENDENTLY WITH HIS . PT HAS NO MEDICAL EQUIPMENT AND NO OUTSIDE SERVICES ASSISTING IN THE HOME. CM DISCUSSED AVAILABILITY OF HOME HEALTH, REHAB SERVICES AND MEDICAL EQUIPMENT. PT DENIES NEED OF MEDICAL EQUIPMENT REPORTING HIS HAS A ROLLATOR WALKER HE CAN USE IF NEEDED SHE DOES NOT REQUIRE IT NOW. PT AND SPOUSE WOULD LIKE TO CONSIDER REHAB AT [place] IF PT DOES NOT NEED TRANSFERRED TO [facility] FOR NEUOLOGY. PT STATES HE IS WAITING FOR THE DOCTOR TO TELL HIM IF HE NEEDS A NEUROLOGIST. PT REPORTS HIS FAMILY WILL PICK HIM UP FOR DISCHARGE HOME CM WAITING THERAPY EVALUATIONS AND INPATIENT REHAB PRESCREENING DETERMINATION FROM [facility] INPATIENT REHAB. Drop Hammer Operator Helper: Danny Darby DCPIA - Discharge Planning Initial Assessment Updated by [email or web address]: Danny Darby on 12/15/18 4:58 pm * Is the patient Alert and Oriented? Yes * How many steps to enter\exit or inside your home? * PCP DR[address] * Pharmacy [facility] OR [facility] ORDER * Preadmission Environment Home with Family * ADLs Independent * Equipment None * Other Equipment PT REPORTS HAVING HIS 'S ROLLATOR WALKER TO USE IF NECESSARY SHE DOES NOT USE IT. NO MEDICAL EQUIPMENT PROVIDER PREFERENCE * List name and contact numbers for known caregivers / representatives who currently or will assist patient after discharge: SWATHI CARSON, SPOUSE, * Verbal permission to speak to the caregivers and representatives has been obtained from the patient. Yes * Community resources currently utilized None * Please name any agencies selected above. NONE * Additional services required to return to the preadmission environment? Yes * Can the patient safely return to the preadmission environment? Yes * Has this patient been hospitalized within the prior 30 days at any hospital? No Coverage Notice Reviewer: [id number] - Daphnie Arnol Notice Issued Date-Time: 12/15/2018 9:40 Notice Type: Medicare Outpatient Observation Notice Notice Delivered To: Patient Relationship to Patient: Self Doughnut Icer Name: Delivery Method: HAND - Hand Delivered Isabelle Days: Prior Verbal Notification: Recipient Understood Notice: Yes Recipient Signature: Yes Med Rec Note Co-signed by Attending: Coverage Notice Comment: Reviewer: [id number] - Danny Darby Notice Issued Date-Time: 12/17/2018 15:45 Notice Type: Patient Choice Letter Notice Delivered To: Patient Relationship to Patient: Doughnut Icer Name: Delivery Method: HAND - Hand Delivered Isabelle Days: Prior Verbal Notification: Recipient Understood Notice: Yes Recipient Signature: Yes Med Rec Note Co-signed by Attending: Coverage Notice Comment: [facility] Last DP export: 12/17/18 3:22 p Patient Name: FORTUNATO CARSON Page [id number] at 1629 All edits/amendments must be made on the electronic document DICTATION DATE: 12/17/181628 SUBSTATION OPERATOR CONVERSION: FRANCESCA 12/17/181628 RPT#: [id number] DC DATE: STATUS: ADM IN [facility] [address] [place] [address] END OF REPORT
--- NOTE | 2018-12-22 13:38 | CN ---
PATIENT NAME:FORTUNATO CARSON MEDICAL RECORD: [id number] : 31 LOCATION:D. D.2118 ADMIT DATE: 12/15/18 ACCOUNT: [id number] CONSULTING PHYSICIAN: KRYSTAL MORENO MD REFERRING PHYSICIAN: DANE HILL MD DATE OF CONSULTATION: 12/15/2018 CARDIOLOGY CONSULT ADMITTING DIAGNOSES: 1. Angina. 2. Coronary artery disease. 3. Previous bypass surgery. 4. Mental status changes. 5. Shortness of breath, dyspnea on exertion. 6. Hypertension. 7. Hyperlipidemia. HISTORY OF PRESENT ILLNESS: This is a gentleman who has recently had mental status changes, frequent falls. He complained of chest discomfort this morning. He is tearful and emotional. He is no longer having the chest discomfort, does have a history of coronary artery disease, status post coronary artery bypass graft surgery approximately 5 years ago. His EKG is normal. Troponin is normal. He is hypertensive with systolic blood pressure 170s, bradycardic with heart rates in the 30s, sinus. No dysrhythmias. PHYSICAL EXAMINATION: CONSTITUTIONAL/GENERAL APPEARANCE: Well nourished, well developed, appears stated age. EYES: Lids and conjunctivae noninjected. No discharge. No pallor. ENT: Lips within normal limit. No cyanosis. No pallor. NECK: Carotid arteries, bilateral normal upstroke. No bruits. No thrills. No jugular venous pressure or distention. CERVICAL LYMPH NODES: Nontender. Nonenlarged. THYROID: Not enlarged. No nodules. CARDIOVASCULAR: Precordial exam, nondisplaced. No heaves or pericardial thrills. Rate and rhythm, regular. Heart sounds, normal S1, normal S2. No S3, no gallop, no rub. Systolic murmur, not heard. Diastolic murmur, not heard. RESPIRATORY: Respiratory effort, unlabored. Normal curvature. No thoracic deformity. No chest wall tenderness. Percussion, resonant. Auscultation, clear. No wheezes, no rales, no rhonchi. ABDOMEN: Soft, nondistended, nontender. No abdominal pain, no vomiting and normal appetite. MUSCULOSKELETAL: No joint tenderness, normal gait, normal tone. SKIN: Warm and dry. OVERALL IMPRESSION: Chest discomfort, difficult to know if this is cardiac or musculoskeletal. He is very emotional with it. It does appear to have definitely positional component. His EKG is normal. At this time, we will put him on a nitropatch. Continue his other medications. He does not need a beta chin due to the resting bradycardia, can add a calcium channel chin to further lower his blood pressure if need be. Otherwise, we will get an echocardiogram to see his overall LV function and wall motion, but at this time no other workup from the standpoint of ischemic heart disease should be needed. CONSULT REPORT [id number] FORTUNATO CARSON TRANSINT:[id number] Voice Confirmation ID: [id number] DOCUMENT ID: [id number] KRYSTAL MORENO MD at 1338 CC: [id number] DICTATION DATE: 12/15/18 1149 HAND LAUNDERER: 12/15/18 1235 DIS IN 12/17/18 [facility] [address] [place] [address]
--- NOTE | 2018-12-22 13:38 | EC ---
PATIENT:FORTUNATO CARSON DATE OF SERVICE: 12/15/18 SEX: M MEDICAL RECORD: [id number] DATE OF : [birth year] LOCATION:D.M2 D.211 AGE OF PATIENT: 83 ADMISSION DATE: 12/15/18 REFERRING PHYSICIAN: INTERPRETING PHYSICIAN: KRYSTAL RAMIREZ MD ECHOCARDIOGRAM REPORT ECHO CHARGES 4 ECHO COMPLETE Date: 12/15/18 CLINICAL DIAGNOSIS: SOB HX CAD/CABG ECHOCARDIOGRAPHIC MEASUREMENTS (adult normal given) AC root (d.<3.7cm) 3.6 cm LV Septum d (<1.2 cm> 1.3 cm Valve Excursion 2.1 cm LV Septum (systole) 1.5 cm Left Atria (s.<4.0cm> 3.1 cm LVPW d(<1.2cm) 1.5 cm RV (d.<2.3cm) 3.6 cm LVPW (sytole) 1.7 cm LV diastole(<5.6CM) 4.6 cm MV E-F(>70mm/sec) cm LV systole 2.6 cm LVOT Diameter 1.6 cm MV exc.(>10mm) 1.4 cm Est.ejection fraction (50-75%) % DOPPLER: LVIT cm/sec A 99.0 cm/sec E 58.0 cm/sec LA cm/sec RVSP 16 mmHg LVOT 152 cm/sec AOP1/2T m/s Asc. Ao 137 cm/sec RVOT 119 cm/sec RA cm/sec PA 123 cm/sec AV Gradient Peak 7.51 mmHg AV Mean 4.19 mmHg AV Area 1.5 cm MV Gradient Peak 3.95 mmHg MV Mean 1.16 mmHg MV Area cm COMMENTS: Highway Maintenance Supervisor: 2 CELESTINE LAMBERT Night Custodian: 1 Dr. Ramirez TAPE# PACS Pericardial Effusion N DATE OF SERVICE: FINDINGS: 1. Left ventricular chamber size is within normal limits. Left ventricular systolic function is preserved at 55%. 2. Left atrium, right atrium, and right ventricular chamber sizes are within normal limits. 3. Valvular structures have normal structure and motion. 4. Doppler interrogation reveals mild aortic insufficiency. No other valvular insufficiency or stenosis and pulmonary systolic pressure is estimated at 16 ECHOCARDIOGRAM REPORT [id number] FORTUNATO CARSON mmHg. 5. No evidence of pericardial effusion or left ventricular thrombus. TRANSINT:[id number] Voice Confirmation ID: [id number] DOCUMENT ID: [id number] KRYSTAL RAMIREZ MD at 1338 CC: [id number] DICTATION DATE: 12/15/181729 FLOOR SANDING MACHINE OPERATOR: 12/15/182101 DIS IN 12/17/18 [facility] [address] [place] [id number]
== END 2018-12-17 16:30 | disposition home or self-care (01) | DRG 68 ==
LOC: D.ER 14:05 → D.M2 19:06 → OBSVTIME 19:09 → D.M2 12-15 15:55
PROVIDERS: Family Medicine; ADMIT Emergency Medicine; ATTEND Emergency Medicine
DX: I65.23 Occlusion and stenosis of bilateral carotid arteries (principal); R55 Syncope and collapse; I25.119 Atherosclerotic heart disease of native coronary artery with unspecified angina pectoris; E78.5 Hyperlipidemia, unspecified; I10 Essential (primary) hypertension; E86.0 Dehydration; I95.9 Hypotension, unspecified; Z85.038 Personal history of other malignant neoplasm of large intestine; R40.2364 Coma scale, best motor response, obeys commands, 24 hours or more after hospital admission; R40.2144 Coma scale, eyes open, spontaneous, 24 hours or more after hospital admission; R40.2244 Coma scale, best verbal response, confused conversation, 24 hours or more after hospital admission

== ENCOUNTER → 2019-12-03 08:50 | Outpatient (CLI) | payer MEDICARE, OTHER ==
[2018-12-16 14:07] VITALS: BMI 25.3
[~2019-12-03 08:50] MED LIST changes: +ASPIRIN EC81 M1 PO; +NITRO-DUR0.6 MG TRANSDERM
== END | disposition home or self-care (01) ==
LOC: D.HCCECHO 08:50
PROVIDERS: ATTEND Internal Medicine Cardiovascular Disease
DX: I25.10 Atherosclerotic heart disease of native coronary artery without angina pectoris (principal)